=== PATIENT | female | born 1985 | race Hispanic/Latino ===

== ENCOUNTER 2020-11-20 18:53 | Emergency (ER) | payer OTHER ==
[2020-11-20 20:00] LABS: #Eosinphils 0.1 10x3/uL (0.0-0.5); #Monocytes 1.3 10x3/uL (0.0-1.1); #Neutrophils 7.7 10x3/uL (1.5-8.4); %Basophils 0.2 % (0.0-2.0); %Eosinophils 0.5 % (0.0-6.0); %Lymphocytes 9.9 % (18.0-47.0); %Monocytes 12.5 % (0.0-10.0); %Neutrophils 76.5 % (40.0-75.0); Hemoglobin 11.7 g/dL (12.0-15.5); Mean Corpuscular HGB CONC 33.8 g/dL (32.0-36.0); Mean Corpuscular Hemoglobin 29.2 pg (27.0-33.0); Mean Corpuscular Volume 86.3 fl (81.6-98.3); Mean Platelet Volume 10.1 fl (7.4-10.4); Platelet Count 230 10x3/uL (150-450); RBC Distribution Width 12.1 % (11.5-14.5); Red Blood Cell (RBC) Count 4.01 10x6/uL (3.90-5.03); White Blood Cell (WBC) Count 10.1 10x3/uL (3.5-10.5)
[2020-11-20 20:05] LABS: Bilirubin Neg (Negative); Blood, Urine 50 (Negative); Clarity Clear (Clear); Glucose, Urine (Dipstick) >=1000 mg/dL (Negative); Ketone, Urine 5 mg/dL (Negative); Leukocyte 100 (Negative); Nitrite Negative (Negative); Protein, Urine (Dipstick) 15 mg/dl (Neg-Trace); Urobilinogen Normal mg/dL (Less than 2)
[2020-11-20 20:11] LABS: BHCG - Serum Negative (NEGATIVE); Pregs Control Background? CLEAR/WHITE (CLR/WHITE); Pregs Control Bar Appear? YES (CONTROL BAR)
[2020-11-20 20:15] LABS: Bacteria/HPF Rare-Few HPF (None Seen); RBC/HPF 0-3 HPF (0-3); Squamous Epithelial 0-3 HPF (0-3)
[2020-11-20 20:18] LABS: ALT (SGPT) 34 U/L (8-55); AST (SGOT) 30 U/L (5-34); Albumin 3.8 g/dL (3.5-5.0); Alkaline Phosphatase 202 U/L (40-110); Anion Gap 13 mmol/L (10-20); BUN (Urea Nitrogen) 5 mg/dL (7.0-18.7); Calc. Creatinine Clearance 0 mL/min (70-130); Calcium 8.9 mg/dL (7.8-10.44); Carbon Dioxide 29 mmol/L (22-29); Chloride 95 mmol/L (98-107); Globulin 3.5 g/dL (2.4-3.5); Glucose 314 mg/dL (70-105); Protein, Total 7.3 g/dL (6.0-8.3); Sodium 134 mmol/L (136-145)
[2020-11-20] MEDS ORDERED: Ondansetron PF 4 MG/2 ML Vial ONE (20:22)
[2020-11-20] MEDS ORDERED: Ketorolac Tromethamine 15 MG/ML VIAL ONE ×2 (20:22→21:45)
[2020-11-20 20:31] LABS: Lipase Less than 4 U/L (8-78); Potassium 2.9 mmol/L (3.5-5.1)
[2020-11-20] MEDS ORDERED: Potassium Chloride 20 MEQ TAB ONE (20:42)
== END 2020-11-20 21:10 | disposition home or self-care (01) ==
LOC: CSHERS 18:53
DX: N12 Tubulo-interstitial nephritis, not specified as acute or chronic (principal); E87.6 Hypokalemia; E10.9 Type 1 diabetes mellitus without complications; E78.5 Hyperlipidemia, unspecified; K86.1 Other chronic pancreatitis; J45.909 Unspecified asthma, uncomplicated; Z79.899 Other long term (current) drug therapy
CPT/HCPCS: 74176; 80053; 81003; 81015; 83690; 84703; 85025; 87077; 87086; 96374; 96375; 96376; J1885; J2405

== ENCOUNTER 2021-06-06 17:21 | Inpatient (IN) | payer OTHER ==
[2021-06-06 18:03] LABS: #Neutrophils 10.7 10x3/uL (1.5-8.4); %Basophils 0.2 % (0.0-2.0); %Eosinophils 0.1 % (0.0-6.0); %Lymphocytes 7.4 % (18.0-47.0); %Monocytes 7.9 % (0.0-10.0); %Neutrophils 83.9 % (40.0-75.0); Hemoglobin 10.9 g/dL (12.0-15.5); Mean Corpuscular HGB CONC 33.3 g/dL (32.0-36.0); Mean Platelet Volume 10.3 fl (7.4-10.4); Platelet Count 282 10x3/uL (150-450); Red Blood Cell (RBC) Count 3.76 10x6/uL (3.90-5.03); White Blood Cell (WBC) Count 12.7 10x3/uL (3.5-10.5)
[2021-06-06] MEDS ORDERED: Ondansetron PF 4 MG/2 ML Vial ONE (18:09)
[2021-06-06] MEDS ORDERED: HYDROmorphone 0.5 MG/0.5 ML SYRINGE ONE (18:09)
[2021-06-06 18:22] LABS: ALT (SGPT) 40 U/L (8-55); AST (SGOT) 55 U/L (5-34); Albumin 3.2 g/dL (3.5-5.0); Alkaline Phosphatase 198 U/L (40-110); Anion Gap 13 mmol/L (10-20); BUN (Urea Nitrogen) 6 mg/dL (7.0-18.7); Calc. Creatinine Clearance 0 mL/min (70-130); Calcium 7.6 mg/dL (7.8-10.44); Carbon Dioxide 25 mmol/L (22-29); Chloride 100 mmol/L (98-107); Globulin 2.5 g/dL (2.4-3.5); Glucose 296 mg/dL (70-105); Protein, Total 5.7 g/dL (6.0-8.3); Sodium 135 mmol/L (136-145)
[2021-06-06 18:33] LABS: Lipase Less than 4 U/L (8-78); Potassium 2.6 mmol/L (3.5-5.1)
[2021-06-06] MEDS ORDERED: cefTRIAXone\\ROCEPHIN 1 GM VIAL ONE (18:46)
[2021-06-06] MEDS ORDERED: Potassium Chloride 20 MEQ TAB ONE (18:52)
[2021-06-06 19:10] LABS: SARS-CoV-2 NAA Rapid Test Not Detected (NotDetected)
[2021-06-06] MEDS ORDERED: Magnesium 2 GM/50 ML BAG (IN WATER) ONE (19:16)
[2021-06-06] MEDS ORDERED: Potassium Chloride 20 MEQ/100 ML PREMIX BAG ONE (19:16)
[2021-06-06 19:22] LABS: Magnesium 1.5 mg/dL (1.6-2.6)
[2021-06-06] MEDS ORDERED: HumaLOG 300 UNITS/3 ML VIAL SC SCH (19:30)
[2021-06-06] MEDS ORDERED: Potassium Chloride 20 MEQ in Premix Bag 1 BAG IVPB SCH (21:00)
[2021-06-06] MEDS ORDERED: Dextrose 5% in Water 1,000 ML IV PRN (21:05)
[2021-06-06] MEDS ORDERED: levETIRAcetam 500 MG TAB PO SCH (21:15)
[2021-06-06 22:10] VITALS: BMI 18.1
[2021-06-06 22:35] LABS: Bilirubin Neg (Negative); Blood, Urine 25 (Negative); Clarity Cloudy (Clear); Glucose, Urine (Dipstick) >=1000 mg/dL (Negative); Ketone, Urine Negative (Negative); Leukocyte 500 (Negative); Nitrite Negative (Negative); Protein, Urine (Dipstick) 30 mg/dl (Neg-Trace); Specific Gravity, Urine 1.005 (1.002-1.036); Urobilinogen Normal mg/dL (Less than 2)
[2021-06-06 23:05] LABS: Bacteria/HPF Rare-Few HPF (None Seen); RBC/HPF 0-3 HPF (0-3); Squamous Epithelial 0-3 HPF (0-3); WBC/HPF Greater than 50 HPF (0-3)
[2021-06-06] MEDS: Cefepime 2 GM in Sodium Chloride 0.9% 100 ML IVPB SCH (23:22)
[2021-06-06] MEDS: Lantus 1000 UNITS/10 ML VIAL SC SCH ×2 (23:23→23:54)
[2021-06-06] MEDS: Sodium Chloride 0.9% 1,000 ML IV SCH (23:24)
[2021-06-07] MEDS ORDERED: Magnesium Sulfate/D5W 1 GM/100 ML BAG IVPB SCH (03:30)
[2021-06-07] MEDS ORDERED: Magnesium 2 GM/50 ML 2 GM in Premix Bag 1 BAG IVPB SCH (04:30)
[2021-06-07 04:47] LABS: #Eosinphils 0.1 10x3/uL (0.0-0.5); #Monocytes 0.8 10x3/uL (0.0-1.1); #Neutrophils 8.9 10x3/uL (1.5-8.4); %Basophils 0.3 % (0.0-2.0); %Eosinophils 0.8 % (0.0-6.0); %Lymphocytes 11.9 % (18.0-47.0); %Monocytes 7.2 % (0.0-10.0); %Neutrophils 79.4 % (40.0-75.0); Hemoglobin 10.9 g/dL (12.0-15.5); Mean Corpuscular HGB CONC 33.2 g/dL (32.0-36.0); Mean Corpuscular Hemoglobin 29.9 pg (27.0-33.0); Mean Corpuscular Volume 89.9 fl (81.6-98.3); Mean Platelet Volume 10.7 fl (7.4-10.4); Platelet Count 261 10x3/uL (150-450); RBC Distribution Width 13.2 % (11.5-14.5); Red Blood Cell (RBC) Count 3.65 10x6/uL (3.90-5.03); White Blood Cell (WBC) Count 11.2 10x3/uL (3.5-10.5)
[2021-06-07] MEDS: Sodium Chloride 0.9% 1,000 ML IV SCH ×3 (05:16→16:25)
[2021-06-07] MEDS: HumaLOG 300 UNITS/3 ML VIAL SC PRN ×3 (05:17→17:05)
[2021-06-07 05:31] LABS: Anion Gap 13 mmol/L (10-20); BUN (Urea Nitrogen) 5 mg/dL (7.0-18.7); Calc. Creatinine Clearance 89 mL/min (70-130); Calcium 7.8 mg/dL (7.8-10.44); Carbon Dioxide 23 mmol/L (22-29); Chloride 107 mmol/L (98-107); Glucose 247 mg/dL (70-105); Magnesium 1.8 mg/dL (1.6-2.6); Potassium 3.6 mmol/L (3.5-5.1); Sodium 139 mmol/L (136-145)
[2021-06-07] MEDS: Cefepime 2 GM in Sodium Chloride 0.9% 100 ML IVPB SCH ×3 (05:56→22:15)
[2021-06-07] MEDS: Vancomycin HCl 750 MG in Sodium Chloride 0.9% 250 ML 250 ML IVPB SCH ×2 (07:16→19:36)
[2021-06-07] MEDS: Acyclovir 400 mg Tablet PO SCH ×2 (07:19→20:12)
[2021-06-07] MEDS: FLUoxetine HCl 20 MG CAP PO SCH (07:20)
[2021-06-07] MEDS: levETIRAcetam 500 MG TAB PO SCH ×2 (07:20→20:11)
[2021-06-07] MEDS: Pregabalin 50 MG CAP PO SCH ×2 (07:21→20:11)
[2021-06-07] MEDS: Enoxaparin Sodium 40 MG/0.4 ML SYRINGE SC SCH (07:21)
[2021-06-07] MEDS: Lantus 1000 UNITS/10 ML VIAL SC SCH (07:44)
[2021-06-07] MEDS ORDERED: Pharmacy to Dose VANC & ABX IVPB PRN (08:04)
[2021-06-07] MEDS ORDERED: FLUoxetine HCl 20 MG CAP PO SCH (09:00)
[2021-06-07] MEDS: Acetaminophen 325 MG TAB PO PRN (20:10)
[2021-06-07] MEDS ORDERED: Lantus 1000 UNITS/10 ML VIAL SC SCH (21:00)
[2021-06-08] MEDS: Sodium Chloride 0.9% 1,000 ML IV SCH ×4 (04:42→13:04)
[2021-06-08 04:50] LABS: #Eosinphils 0.2 10x3/uL (0.0-0.5); #Monocytes 0.6 10x3/uL (0.0-1.1); #Neutrophils 3.5 10x3/uL (1.5-8.4); %Basophils 0.5 % (0.0-2.0); %Eosinophils 2.8 % (0.0-6.0); %Lymphocytes 44.6 % (18.0-47.0); %Monocytes 7.4 % (0.0-10.0); %Neutrophils 44.4 % (40.0-75.0); Hemoglobin 10.6 g/dL (12.0-15.5); Mean Corpuscular HGB CONC 31.8 g/dL (32.0-36.0); Mean Corpuscular Hemoglobin 28.7 pg (27.0-33.0); Mean Corpuscular Volume 90.2 fl (81.6-98.3); Mean Platelet Volume 10.6 fl (7.4-10.4); Platelet Count 350 10x3/uL (150-450); RBC Distribution Width 13.3 % (11.5-14.5); Red Blood Cell (RBC) Count 3.69 10x6/uL (3.90-5.03); White Blood Cell (WBC) Count 7.8 10x3/uL (3.5-10.5)
[2021-06-08 05:10] LABS: Anion Gap 10 mmol/L (10-20); BUN (Urea Nitrogen) 5 mg/dL (7.0-18.7); Calc. Creatinine Clearance 99 mL/min (70-130); Calcium 8.3 mg/dL (7.8-10.44); Carbon Dioxide 25 mmol/L (22-29); Chloride 110 mmol/L (98-107); Glucose 66 mg/dL (70-105); Sodium 142 mmol/L (136-145)
[2021-06-08] MEDS: Cefepime 2 GM in Sodium Chloride 0.9% 100 ML IVPB SCH ×3 (05:46→22:14)
[2021-06-08] MEDS: Vancomycin HCl 750 MG in Sodium Chloride 0.9% 250 ML 250 ML IVPB SCH ×2 (07:18→22:13)
[2021-06-08] MEDS: FLUoxetine HCl 20 MG CAP PO SCH (07:19)
[2021-06-08] MEDS: levETIRAcetam 500 MG TAB PO SCH ×2 (07:20→22:11)
[2021-06-08] MEDS: Acyclovir 400 mg Tablet PO SCH ×2 (07:20→22:22)
[2021-06-08] MEDS: Pregabalin 50 MG CAP PO SCH ×2 (07:20→22:11)
[2021-06-08] MEDS: Enoxaparin Sodium 40 MG/0.4 ML SYRINGE SC SCH (07:20)
[2021-06-08] MEDS: Lantus 1000 UNITS/10 ML VIAL SC SCH ×2 (08:32→22:16)
[2021-06-08] MEDS: Acetaminophen 325 MG TAB PO PRN (08:38)
[2021-06-08] MEDS ORDERED: Potassium Chloride 20 MEQ TAB PO SCH (09:00)
[2021-06-08] MEDS ORDERED: Lorazepam 2 MG/ML VIAL SLOW IVP SCH ×2 (15:00)
[2021-06-08] MEDS: Dextrose 50% Abboject 50 ML SYRINGE SLOW IVP PRN ×2 (15:00→18:41)
[2021-06-08] MEDS: levETIRAcetam in NS 1,000 MG in Premix Bag 1 BAG IVPB SCH ×2 (15:30→16:01)
[2021-06-08 16:03] LABS: Lactic Acid 2.2 mmol/L (0.5-2.2)
[2021-06-08 19:28] LABS: Vancomycin, Trough 6.8 ug/mL
[2021-06-08] MEDS ORDERED: Dextrose 10% in Water 1,000 ML IV SCH (23:45)
[2021-06-09] MEDS: Dextrose 10% in Water 1,000 ML IV SCH ×2 (01:30→12:26)
[2021-06-09 04:37] LABS: Anion Gap 9 mmol/L (10-20); BUN (Urea Nitrogen) Less than 4 mg/dL (7.0-18.7); Calc. Creatinine Clearance 106 mL/min (70-130); Calcium 8.3 mg/dL (7.8-10.44); Carbon Dioxide 26 mmol/L (22-29); Chloride 107 mmol/L (98-107); Glucose 131 mg/dL (70-105); Potassium 3.4 mmol/L (3.5-5.1); Sodium 139 mmol/L (136-145)
[2021-06-09 05:02] LABS: Lipase Less than 4 U/L (8-78)
[2021-06-09 05:18] LABS: #Eosinphils 0.2 10x3/uL (0.0-0.5); #Monocytes 0.4 10x3/uL (0.0-1.1); %Basophils 0.8 % (0.0-2.0); %Eosinophils 3.8 % (0.0-6.0); %Lymphocytes 45.4 % (18.0-47.0); %Monocytes 8.8 % (0.0-10.0); Hemoglobin 10.3 g/dL (12.0-15.5); Mean Corpuscular HGB CONC 31.8 g/dL (32.0-36.0); Mean Corpuscular Hemoglobin 28.9 pg (27.0-33.0); Mean Corpuscular Volume 90.8 fl (81.6-98.3); Mean Platelet Volume 10.9 fl (7.4-10.4); Platelet Count 292 10x3/uL (150-450); RBC Distribution Width 13.5 % (11.5-14.5); Red Blood Cell (RBC) Count 3.57 10x6/uL (3.90-5.03)
[2021-06-09 05:50] LABS: ALT (SGPT) 63 U/L (8-55); AST (SGOT) 59 U/L (5-34); Albumin 2.8 g/dL (3.5-5.0); Alkaline Phosphatase 180 U/L (40-110); Bilirubin, Direct 0.1 mg/dL (0.1-0.3); Bilirubin, Total 0.2 mg/dL (0.2-1.2); Protein, Total 5.9 g/dL (6.0-8.3)
[2021-06-09] MEDS: Cefepime 2 GM in Sodium Chloride 0.9% 100 ML IVPB SCH ×3 (06:46→21:32)
[2021-06-09] MEDS: Vancomycin HCl 750 MG in Sodium Chloride 0.9% 250 ML 250 ML IVPB SCH ×3 (06:47→15:56)
[2021-06-09] MEDS ORDERED: Potassium Chloride 20 MEQ TAB PO SCH (07:45)
[2021-06-09] MEDS: Pregabalin 50 MG CAP PO SCH (09:48)
[2021-06-09] MEDS: Enoxaparin Sodium 40 MG/0.4 ML SYRINGE SC SCH (09:48)
[2021-06-09] MEDS: FLUoxetine HCl 20 MG CAP PO SCH (09:48)
[2021-06-09] MEDS: levETIRAcetam 500 MG TAB PO SCH ×2 (09:48→21:44)
[2021-06-09] MEDS: Acyclovir 400 mg Tablet PO SCH ×2 (09:49→21:00)
[2021-06-09] MEDS: Lantus 1000 UNITS/10 ML VIAL SC SCH ×2 (09:49→20:19)
[2021-06-09] MEDS: Sodium Chloride 0.9% 1,000 ML IV SCH (09:51)
[2021-06-09] MEDS ORDERED: Sodium Chloride 0.9% 100 ML ONE (20:49)
[2021-06-09] MEDS ORDERED: Vancomycin HCl 750 MG VIAL ONE (20:49)
[2021-06-09] MEDS: Dextrose 50% Abboject 50 ML SYRINGE SLOW IVP PRN (22:22)
[2021-06-09] MEDS ORDERED: Lorazepam 2 MG/ML VIAL SLOW IVP SCH (22:30)
[2021-06-09] MEDS ORDERED: Lorazepam 2 MG/ML VIAL ONE (22:31)
[2021-06-10 00:11] LABS: Anion Gap 15 mmol/L (10-20); BUN (Urea Nitrogen) Less than 4 mg/dL (7.0-18.7); Calc. Creatinine Clearance 86 mL/min (70-130); Carbon Dioxide 29 mmol/L (22-29); Chloride 100 mmol/L (98-107); Glucose 186 mg/dL (70-105); Magnesium 1.9 mg/dL (1.6-2.6); Potassium 4.1 mmol/L (3.5-5.1); Sodium 140 mmol/L (136-145)
[2021-06-10] MEDS: Vancomycin HCl 500 MG in Sodium Chloride 0.9% 100 ML IVPB SCH ×2 (00:43→08:54)
[2021-06-10] MEDS: Pregabalin 50 MG CAP PO SCH ×3 (03:59→20:56)
[2021-06-10] MEDS: Dextrose 10% in Water 1,000 ML IV SCH ×3 (04:07→17:46)
[2021-06-10 04:26] LABS: #Basophils 0.1 10x3/uL (0.0-0.2); #Eosinphils 0.2 10x3/uL (0.0-0.5); #Monocytes 0.6 10x3/uL (0.0-1.1); #Neutrophils 2.6 10x3/uL (1.5-8.4); %Basophils 0.9 % (0.0-2.0); %Eosinophils 3.8 % (0.0-6.0); %Lymphocytes 34.7 % (18.0-47.0); %Monocytes 10.7 % (0.0-10.0); %Neutrophils 48.6 % (40.0-75.0); Hemoglobin 12.5 g/dL (12.0-15.5); Mean Corpuscular HGB CONC 33.7 g/dL (32.0-36.0); Mean Corpuscular Hemoglobin 28.9 pg (27.0-33.0); Mean Corpuscular Volume 85.9 fl (81.6-98.3); Mean Platelet Volume 10.2 fl (7.4-10.4); Platelet Count 413 10x3/uL (150-450); RBC Distribution Width 13.1 % (11.5-14.5); Red Blood Cell (RBC) Count 4.32 10x6/uL (3.90-5.03); White Blood Cell (WBC) Count 5.3 10x3/uL (3.5-10.5)
[2021-06-10 04:38] LABS: Anion Gap 12 mmol/L (10-20); BUN (Urea Nitrogen) Less than 4 mg/dL (7.0-18.7); Calc. Creatinine Clearance 95 mL/min (70-130); Calcium 9.2 mg/dL (7.8-10.44); Carbon Dioxide 27 mmol/L (22-29); Chloride 103 mmol/L (98-107); Glucose 129 mg/dL (70-105); Magnesium 1.9 mg/dL (1.6-2.6); Potassium 4.4 mmol/L (3.5-5.1); Sodium 138 mmol/L (136-145)
[2021-06-10] MEDS: Cefepime 2 GM in Sodium Chloride 0.9% 100 ML IVPB SCH ×3 (05:04→22:31)
[2021-06-10] MEDS ORDERED: Vancomycin HCl 750 MG in Sodium Chloride 0.9% 250 ML 250 ML IVPB SCH (06:00)
[2021-06-10] MEDS: Enoxaparin Sodium 40 MG/0.4 ML SYRINGE SC SCH (08:55)
[2021-06-10] MEDS ORDERED: Electrolyte Replacement Protocol 1 EACH FS SCH (09:00)
[2021-06-10] MEDS ORDERED: Magnesium 2 GM/50 ML 2 GM in Premix Bag 1 BAG IVPB SCH (09:00)
[2021-06-10] MEDS ORDERED: levETIRAcetam in NS 1,000 MG in Premix Bag 1 BAG IVPB SCH (09:00)
[2021-06-10] MEDS: Acyclovir 400 mg Tablet PO SCH ×2 (09:26→20:56)
[2021-06-10] MEDS: Lantus 1000 UNITS/10 ML VIAL SC SCH (09:26)
[2021-06-10] MEDS: FLUoxetine HCl 20 MG CAP PO SCH (09:26)
[2021-06-10] MEDS: Famotidine 20 MG TAB PO SCH ×2 (09:26→20:56)
[2021-06-10] MEDS: Dextrose 50% Abboject 50 ML SYRINGE SLOW IVP PRN (10:31)
[2021-06-10] MEDS ORDERED: levETIRAcetam 750 MG, Admixture Fee 1 EACH in Sodium Chloride 0.9% 100 ML IVPB SCH (10:45)
[2021-06-10] MEDS: levETIRAcetam 750 MG, Admixture Fee 1 EACH in Sodium Chloride 0.9% 100 ML IVPB SCH (20:55)
[2021-06-11] MEDS: Dextrose 10% in Water 1,000 ML IV SCH ×3 (03:30→23:00)
[2021-06-11 04:33] LABS: #Basophils 0.1 10x3/uL (0.0-0.2); #Eosinphils 0.2 10x3/uL (0.0-0.5); #Monocytes 0.9 10x3/uL (0.0-1.1); #Neutrophils 3.6 10x3/uL (1.5-8.4); %Basophils 1.1 % (0.0-2.0); %Eosinophils 3.5 % (0.0-6.0); %Lymphocytes 27.2 % (18.0-47.0); %Monocytes 13.5 % (0.0-10.0); %Neutrophils 54.2 % (40.0-75.0); Hemoglobin 11.5 g/dL (12.0-15.5); Mean Corpuscular HGB CONC 31.9 g/dL (32.0-36.0); Mean Corpuscular Hemoglobin 28.4 pg (27.0-33.0); Mean Corpuscular Volume 88.9 fl (81.6-98.3); Mean Platelet Volume 9.6 fl (7.4-10.4); Platelet Count 470 10x3/uL (150-450); RBC Distribution Width 12.8 % (11.5-14.5); Red Blood Cell (RBC) Count 4.05 10x6/uL (3.90-5.03); White Blood Cell (WBC) Count 6.7 10x3/uL (3.5-10.5)
[2021-06-11 04:44] LABS: Anion Gap 11 mmol/L (10-20); BUN (Urea Nitrogen) 5 mg/dL (7.0-18.7); Calc. Creatinine Clearance 74 mL/min (70-130); Calcium 8.8 mg/dL (7.8-10.44); Carbon Dioxide 27 mmol/L (22-29); Chloride 101 mmol/L (98-107); Glucose 250 mg/dL (70-105); Lipase 4 U/L (8-78); Magnesium 1.9 mg/dL (1.6-2.6); Potassium 4.1 mmol/L (3.5-5.1); Sodium 135 mmol/L (136-145)
[2021-06-11] MEDS: Cefepime 2 GM in Sodium Chloride 0.9% 100 ML IVPB SCH ×3 (05:40→21:30)
[2021-06-11] MEDS ORDERED: Magnesium 2 GM/50 ML 2 GM in Premix Bag 1 BAG IVPB SCH (05:45)
[2021-06-11] MEDS: Pregabalin 50 MG CAP PO SCH ×2 (08:33→21:09)
[2021-06-11] MEDS: Famotidine 20 MG TAB PO SCH ×2 (08:34→21:09)
[2021-06-11] MEDS: Acyclovir 400 mg Tablet PO SCH ×2 (08:34→21:11)
[2021-06-11] MEDS: FLUoxetine HCl 20 MG CAP PO SCH (08:34)
[2021-06-11] MEDS: Enoxaparin Sodium 40 MG/0.4 ML SYRINGE SC SCH (08:36)
[2021-06-11] MEDS: Lantus 1000 UNITS/10 ML VIAL SC SCH (08:38)
[2021-06-11] MEDS ORDERED: Sodium Chloride 0.9% 500 ML IV SCH (08:45)
[2021-06-11] MEDS: levETIRAcetam 750 MG, Admixture Fee 1 EACH in Sodium Chloride 0.9% 100 ML IVPB SCH ×2 (09:08→21:10)
[2021-06-11] MEDS: Sodium Chloride 0.9% 1,000 ML IV SCH ×2 (09:09→18:44)
[2021-06-11 14:45] LABS: BHCG - Serum Negative (NEGATIVE); Pregs Control Background? CLEAR/WHITE (CLR/WHITE); Pregs Control Bar Appear? YES (CONTROL BAR)
[2021-06-11] MEDS ORDERED: PROPOFOL 0 ML ONE (15:56)
[2021-06-11] MEDS ORDERED: Midazolam HCl 2 mg/2 ml Vial ONE (16:14)
[2021-06-11] MEDS ORDERED: Pancrelipase DR 12,000 1 CAP PO SCH (18:30)
[2021-06-11] MEDS ORDERED: Loperamide HCl 2 MG CAP PO SCH (21:30)
[2021-06-12 04:36] LABS: #Basophils 0.1 10x3/uL (0.0-0.2); #Eosinphils 0.3 10x3/uL (0.0-0.5); #Monocytes 0.6 10x3/uL (0.0-1.1); #Neutrophils 2.1 10x3/uL (1.5-8.4); %Eosinophils 5.1 % (0.0-6.0); %Lymphocytes 37.9 % (18.0-47.0); %Monocytes 11.8 % (0.0-10.0); %Neutrophils 43.4 % (40.0-75.0); Hemoglobin 11.4 g/dL (12.0-15.5); Mean Corpuscular HGB CONC 32.5 g/dL (32.0-36.0); Mean Corpuscular Hemoglobin 28.9 pg (27.0-33.0); Mean Corpuscular Volume 88.9 fl (81.6-98.3); Mean Platelet Volume 9.9 fl (7.4-10.4); Platelet Count 352 10x3/uL (150-450); RBC Distribution Width 12.9 % (11.5-14.5); Red Blood Cell (RBC) Count 3.95 10x6/uL (3.90-5.03); White Blood Cell (WBC) Count 4.9 10x3/uL (3.5-10.5)
[2021-06-12 04:47] LABS: Anion Gap 11 mmol/L (10-20); BUN (Urea Nitrogen) 5 mg/dL (7.0-18.7); Calc. Creatinine Clearance 84 mL/min (70-130); Calcium 8.7 mg/dL (7.8-10.44); Carbon Dioxide 26 mmol/L (22-29); Chloride 106 mmol/L (98-107); Glucose 154 mg/dL (70-105); Magnesium 1.8 mg/dL (1.6-2.6); Potassium 3.7 mmol/L (3.5-5.1); Sodium 139 mmol/L (136-145)
[2021-06-12] MEDS ORDERED: Magnesium 2 GM/50 ML 2 GM in Premix Bag 1 BAG IVPB SCH (05:15)
[2021-06-12] MEDS: Sodium Chloride 0.9% 1,000 ML IV SCH (05:34)
[2021-06-12] MEDS: Cefepime 2 GM in Sodium Chloride 0.9% 100 ML IVPB SCH ×3 (05:34→22:40)
[2021-06-12] MEDS: Famotidine 20 MG TAB PO SCH ×2 (08:24→21:06)
[2021-06-12] MEDS: Pregabalin 50 MG CAP PO SCH ×2 (08:24→21:06)
[2021-06-12] MEDS: Enoxaparin Sodium 40 MG/0.4 ML SYRINGE SC SCH (08:24)
[2021-06-12] MEDS: Acyclovir 400 mg Tablet PO SCH ×2 (08:24→21:06)
[2021-06-12] MEDS: Pancrelipase DR 12,000 1 CAP PO SCH ×3 (08:25→17:48)
[2021-06-12] MEDS: FLUoxetine HCl 20 MG CAP PO SCH (08:25)
[2021-06-12] MEDS: Lantus 1000 UNITS/10 ML VIAL SC SCH (08:26)
[2021-06-12] MEDS: levETIRAcetam 750 MG, Admixture Fee 1 EACH in Sodium Chloride 0.9% 100 ML IVPB SCH ×2 (08:48→21:05)
[2021-06-12] MEDS ORDERED: Electrolyte Replacement Protocol 1 EACH FS SCH (12:30)
[2021-06-12] MEDS: HumaLOG 300 UNITS/3 ML VIAL SC PRN ×3 (13:07→22:06)
[2021-06-12] MEDS: Dextrose 50% Abboject 50 ML SYRINGE SLOW IVP PRN (16:02)
[2021-06-12] MEDS ORDERED: Lorazepam 2 MG/ML VIAL SLOW IVP SCH (17:00)
[2021-06-12] MEDS ORDERED: levETIRAcetam in NS 1,000 MG in Premix Bag 1 BAG IVPB SCH (17:00)
[2021-06-12] MEDS ORDERED: ADMIXTURE FEE IVPB SCH (18:00)
[2021-06-12] MEDS ORDERED: SODIUM CHLORIDE IVPB SCH (18:00)
[2021-06-12] MEDS ORDERED: FOSPHENYTOIN SODIUM IVPB SCH (18:00)
[2021-06-12] MEDS: Dextrose 5% in Water 1,000 ML IV SCH (18:40)
[2021-06-13] MEDS: Dextrose 5% in Water 1,000 ML IV SCH ×3 (02:31→12:32)
[2021-06-13 03:51] LABS: ALT (SGPT) 55 U/L (8-55); AST (SGOT) 40 U/L (5-34); Albumin 3.3 g/dL (3.5-5.0); Alkaline Phosphatase 205 U/L (40-110); Anion Gap 12 mmol/L (10-20); BUN (Urea Nitrogen) 6 mg/dL (7.0-18.7); Bilirubin, Total 0.5 mg/dL (0.2-1.2); Calc. Creatinine Clearance 88 mL/min (70-130); Carbon Dioxide 27 mmol/L (22-29); Chloride 104 mmol/L (98-107); Globulin 3.5 g/dL (2.4-3.5); Glucose 119 mg/dL (70-105); Phosphorus 3.1 mg/dL (2.3-4.7); Protein, Total 6.8 g/dL (6.0-8.3); Sodium 139 mmol/L (136-145)
[2021-06-13 04:04] LABS: Magnesium 1.8 mg/dL (1.6-2.6)
[2021-06-13] MEDS ORDERED: Magnesium 2 GM/50 ML 2 GM in Premix Bag 1 BAG IVPB SCH (05:00)
[2021-06-13] MEDS ORDERED: Magnesium 2 GM/50 ML BAG (IN WATER) ONE (05:44)
[2021-06-13] MEDS: Cefepime 2 GM in Sodium Chloride 0.9% 100 ML IVPB SCH ×3 (05:51→22:22)
[2021-06-13] MEDS: Enoxaparin Sodium 40 MG/0.4 ML SYRINGE SC SCH (09:07)
[2021-06-13] MEDS: HumaLOG 300 UNITS/3 ML VIAL SC PRN ×4 (09:09→16:21)
[2021-06-13] MEDS: SODIUM CHLORIDE IVPB SCH (09:21)
[2021-06-13] MEDS: levETIRAcetam 750 MG, Admixture Fee 1 EACH in Sodium Chloride 0.9% 100 ML IVPB SCH ×2 (09:21→20:58)
[2021-06-13] MEDS: ADMIXTURE FEE IVPB SCH (09:21)
[2021-06-13] MEDS: FOSPHENYTOIN SODIUM IVPB SCH (09:21)
[2021-06-13] MEDS ORDERED: Senokot S 8.6-50 MG TAB PO PRN (09:34)
[2021-06-13] MEDS ORDERED: Cepastat Lozenges 1 LOZ PO PRN (09:34)
[2021-06-13] MEDS ORDERED: Bisacodyl 10 MG SUPP PR PRN (09:34)
[2021-06-13] MEDS ORDERED: hydrALAZINE 20 MG/ML VIAL SLOW IVP PRN (09:34)
[2021-06-13] MEDS ORDERED: Hydrocerin (Eucerin) Cream 120 gm Jar TOP PRN (09:34)
[2021-06-13] MEDS ORDERED: Calcium Carbonate 500 MG ChewTAB PO PRN (09:34)
[2021-06-13] MEDS ORDERED: Artificial Tear Sol 15 ML BOT EA EYE PRN (09:34)
[2021-06-13] MEDS ORDERED: Ondansetron ODT 4 MG TAB PO PRN (09:34)
[2021-06-13] MEDS ORDERED: GUAIFENESIN SF SOLN 200 MG/10 ML UDCUP PO PRN (09:34)
[2021-06-13] MEDS ORDERED: Sodium Chloride 0.65% Nasal 44 ML BOT EA NARE PRN (09:34)
[2021-06-13] MEDS ORDERED: Ondansetron PF 4 MG/2 ML Vial IVP PRN (09:34)
[2021-06-13] MEDS: Acyclovir 400 mg Tablet PO SCH ×2 (10:03→20:58)
[2021-06-13] MEDS: Famotidine 20 MG TAB PO SCH ×2 (10:03→20:58)
[2021-06-13] MEDS: Pregabalin 50 MG CAP PO SCH ×2 (10:09→20:59)
[2021-06-13] MEDS: FLUoxetine HCl 20 MG CAP PO SCH (10:38)
[2021-06-13] MEDS: Pancrelipase DR 12,000 1 CAP PO SCH ×3 (10:38→19:07)
[2021-06-13] MEDS: Lantus 1000 UNITS/10 ML VIAL SC SCH (10:46)
[2021-06-13] MEDS: Loperamide HCl 2 MG CAP PO PRN (17:14)
[2021-06-13] MEDS ORDERED: HYDROcodone/Acetaminophen 5/325 mg Tablet PO SCH (20:30)
[2021-06-13] MEDS: Multivitamins, Adult 10 ML, Folic Acid 1 MG in Dextrose 5 %-0.45 % NaCl 1,000 ML IV SCH (22:22)
[2021-06-13] MEDS: Thiamine HCl 200 MG/2 ML VIAL SLOW IVP SCH (22:26)
[2021-06-14 03:00] LABS: Pregnancy Test - Urine (BHCG) Negative (Negative)
[2021-06-14 03:05] LABS: Pregu Control Background? CLEAR/WHITE (CLR/WHITE); Pregu Control Bar Appear? YES (CONTROL BAR); Specific Gravity 1.005 (1.002-1.036)
[2021-06-14] MEDS: HumaLOG 300 UNITS/3 ML VIAL SC PRN (03:06)
[2021-06-14 04:52] LABS: #Basophils 0.1 10x3/uL (0.0-0.2); #Eosinphils 0.3 10x3/uL (0.0-0.5); #Monocytes 0.5 10x3/uL (0.0-1.1); #Neutrophils 2.5 10x3/uL (1.5-8.4); %Basophils 1.1 % (0.0-2.0); %Eosinophils 4.7 % (0.0-6.0); %Lymphocytes 38.2 % (18.0-47.0); %Monocytes 9.3 % (0.0-10.0); %Neutrophils 45.8 % (40.0-75.0); Hemoglobin 11.9 g/dL (12.0-15.5); Mean Corpuscular Volume 90.7 fl (81.6-98.3); Mean Platelet Volume 9.2 fl (7.4-10.4); Platelet Count 445 10x3/uL (150-450); RBC Distribution Width 12.9 % (11.5-14.5); White Blood Cell (WBC) Count 5.4 10x3/uL (3.5-10.5)
[2021-06-14 04:55] LABS: ALT (SGPT) 51 U/L (8-55); AST (SGOT) 35 U/L (5-34); Albumin 3.4 g/dL (3.5-5.0); Alkaline Phosphatase 225 U/L (40-110); Anion Gap 11 mmol/L (10-20); BUN (Urea Nitrogen) 6 mg/dL (7.0-18.7); Bilirubin, Total 0.5 mg/dL (0.2-1.2); Calc. Creatinine Clearance 73 mL/min (70-130); Calcium 9.2 mg/dL (7.8-10.44); Carbon Dioxide 24 mmol/L (22-29); Chloride 101 mmol/L (98-107); Globulin 3.9 g/dL (2.4-3.5); Glucose 229 mg/dL (70-105); Magnesium 1.9 mg/dL (1.6-2.6); Phosphorus 2.7 mg/dL (2.3-4.7); Protein, Total 7.3 g/dL (6.0-8.3); Sodium 132 mmol/L (136-145)
[2021-06-14] MEDS ORDERED: Magnesium 2 GM/50 ML 2 GM in Premix Bag 1 BAG IVPB SCH (05:30)
[2021-06-14] MEDS: Dextrose 5% in Water 1,000 ML IV SCH (05:35)
[2021-06-14] MEDS ORDERED: HYDROcodone/Acetaminophen 5/325 mg Tablet PO PRN (05:41)
[2021-06-14] MEDS: Cefepime 2 GM in Sodium Chloride 0.9% 100 ML IVPB SCH ×3 (06:33→23:00)
[2021-06-14] MEDS: SODIUM CHLORIDE IVPB SCH (09:07)
[2021-06-14] MEDS: FOSPHENYTOIN SODIUM IVPB SCH (09:07)
[2021-06-14] MEDS: ADMIXTURE FEE IVPB SCH (09:07)
[2021-06-14] MEDS: FLUoxetine HCl 20 MG CAP PO SCH (09:08)
[2021-06-14] MEDS: Pancrelipase DR 12,000 1 CAP PO SCH ×3 (09:08→16:51)
[2021-06-14] MEDS: Acyclovir 400 mg Tablet PO SCH ×2 (09:08→20:47)
[2021-06-14] MEDS: Enoxaparin Sodium 40 MG/0.4 ML SYRINGE SC SCH (09:08)
[2021-06-14] MEDS: Famotidine 20 MG TAB PO SCH ×2 (09:09→20:48)
[2021-06-14] MEDS: Pregabalin 50 MG CAP PO SCH ×2 (09:09→20:47)
[2021-06-14] MEDS: Lantus 1000 UNITS/10 ML VIAL SC SCH (09:12)
[2021-06-14] MEDS: levETIRAcetam 750 MG, Admixture Fee 1 EACH in Sodium Chloride 0.9% 100 ML IVPB SCH ×2 (10:01→20:47)
[2021-06-14] MEDS: Fentanyl 100 MCG/2 ML VIAL SLOW IVP PRN (13:35)
[2021-06-14] MEDS: Loperamide HCl 2 MG CAP PO PRN (17:35)
[2021-06-15 04:36] LABS: ALT (SGPT) 44 U/L (8-55); AST (SGOT) 30 U/L (5-34); Albumin 3.1 g/dL (3.5-5.0); Alkaline Phosphatase 199 U/L (40-110); Anion Gap 10 mmol/L (10-20); BUN (Urea Nitrogen) 8 mg/dL (7.0-18.7); Bilirubin, Total 0.3 mg/dL (0.2-1.2); Calc. Creatinine Clearance 85 mL/min (70-130); Calcium 8.7 mg/dL (7.8-10.44); Carbon Dioxide 29 mmol/L (22-29); Chloride 103 mmol/L (98-107); Globulin 3.3 g/dL (2.4-3.5); Glucose 146 mg/dL (70-105); Potassium 3.8 mmol/L (3.5-5.1); Protein, Total 6.4 g/dL (6.0-8.3); Sodium 138 mmol/L (136-145)
[2021-06-15 05:58] LABS: #Basophils 0.1 10x3/uL (0.0-0.2); #Eosinphils 0.2 10x3/uL (0.0-0.5); #Monocytes 0.5 10x3/uL (0.0-1.1); #Neutrophils 2.4 10x3/uL (1.5-8.4); %Basophils 1.4 % (0.0-2.0); %Eosinophils 3.6 % (0.0-6.0); %Lymphocytes 37.4 % (18.0-47.0); %Monocytes 9.5 % (0.0-10.0); %Neutrophils 47.7 % (40.0-75.0); Hemoglobin 10.9 g/dL (12.0-15.5); Mean Corpuscular Hemoglobin 29.3 pg (27.0-33.0); Mean Corpuscular Volume 88.7 fl (81.6-98.3); Mean Platelet Volume 9.1 fl (7.4-10.4); Platelet Count 400 10x3/uL (150-450); RBC Distribution Width 12.9 % (11.5-14.5); Red Blood Cell (RBC) Count 3.72 10x6/uL (3.90-5.03)
[2021-06-15] MEDS: Fentanyl 100 MCG/2 ML VIAL SLOW IVP PRN ×3 (08:10→16:44)
[2021-06-15] MEDS: Dextrose 5% in Water 1,000 ML IV SCH ×2 (08:15→13:14)
[2021-06-15] MEDS: Cefepime 2 GM in Sodium Chloride 0.9% 100 ML IVPB SCH ×3 (08:16→23:00)
[2021-06-15] MEDS: Pancrelipase DR 12,000 1 CAP PO SCH ×3 (08:18→16:15)
[2021-06-15] MEDS: Acyclovir 400 mg Tablet PO SCH ×2 (08:19→20:52)
[2021-06-15] MEDS: FLUoxetine HCl 20 MG CAP PO SCH (08:20)
[2021-06-15] MEDS: Enoxaparin Sodium 40 MG/0.4 ML SYRINGE SC SCH (08:20)
[2021-06-15] MEDS: Famotidine 20 MG TAB PO SCH ×2 (08:20→20:53)
[2021-06-15] MEDS: Loperamide HCl 2 MG CAP PO PRN ×2 (08:23→20:53)
[2021-06-15] MEDS: Pregabalin 50 MG CAP PO SCH ×2 (09:00→20:52)
[2021-06-15 12:03] LABS: SARS-CoV-2 PCR by NAA Not Detected (NotDetected)
[2021-06-15] MEDS: FOSPHENYTOIN SODIUM IVPB SCH (12:55)
[2021-06-15] MEDS: Lantus 1000 UNITS/10 ML VIAL SC SCH ×2 (12:55→16:17)
[2021-06-15] MEDS: SODIUM CHLORIDE IVPB SCH (12:55)
[2021-06-15] MEDS: ADMIXTURE FEE IVPB SCH (12:55)
[2021-06-15] MEDS: levETIRAcetam 750 MG, Admixture Fee 1 EACH in Sodium Chloride 0.9% 100 ML IVPB SCH ×2 (12:59→21:16)
[2021-06-15] MEDS: HumaLOG 300 UNITS/3 ML VIAL SC PRN (16:17)
[2021-06-15] MEDS: Thiamine HCl 200 MG/2 ML VIAL SLOW IVP SCH ×2 (23:48)
[2021-06-15] MEDS: Multivitamins, Adult 10 ML, Folic Acid 1 MG in Dextrose 5 %-0.45 % NaCl 1,000 ML IV SCH ×2 (23:49)
[2021-06-16] MEDS: Ondansetron PF 4 MG/2 ML Vial IVP PRN ×2 (00:02→08:58)
[2021-06-16] MEDS: Cefepime 2 GM in Sodium Chloride 0.9% 100 ML IVPB SCH (07:00)
[2021-06-16] MEDS: Pregabalin 50 MG CAP PO SCH ×2 (08:56→21:31)
[2021-06-16] MEDS: Acyclovir 400 mg Tablet PO SCH ×2 (08:56→21:31)
[2021-06-16] MEDS: Dextrose 5% in Water 1,000 ML IV SCH (08:58)
[2021-06-16] MEDS: Enoxaparin Sodium 40 MG/0.4 ML SYRINGE SC SCH (08:58)
[2021-06-16] MEDS: FLUoxetine HCl 20 MG CAP PO SCH (08:59)
[2021-06-16] MEDS: Pancrelipase DR 12,000 1 CAP PO SCH ×3 (09:00→17:48)
[2021-06-16] MEDS: Famotidine 20 MG TAB PO SCH ×2 (09:00→21:32)
[2021-06-16] MEDS: SODIUM CHLORIDE IVPB SCH ×3 (09:02→10:45)
[2021-06-16] MEDS: FOSPHENYTOIN SODIUM IVPB SCH ×3 (09:02→10:45)
[2021-06-16] MEDS: ADMIXTURE FEE IVPB SCH ×3 (09:02→10:45)
[2021-06-16] MEDS: Lantus 1000 UNITS/10 ML VIAL SC SCH (09:12)
[2021-06-16] MEDS: HumaLOG 300 UNITS/3 ML VIAL SC PRN ×3 (09:12→21:37)
[2021-06-16] MEDS: levETIRAcetam 750 MG, Admixture Fee 1 EACH in Sodium Chloride 0.9% 100 ML IVPB SCH (10:45)
[2021-06-16] MEDS ORDERED: traZODone HCl 50 MG TAB PO SCH (21:00)
[2021-06-16] MEDS: LACTINEX 1 TAB PO SCH (21:31)
[2021-06-16] MEDS: levETIRAcetam 500 MG TAB PO SCH (21:32)
[2021-06-17 03:05] LABS: #Basophils 0.1 10x3/uL (0.0-0.2); #Eosinphils 0.2 10x3/uL (0.0-0.5); #Monocytes 0.4 10x3/uL (0.0-1.1); #Neutrophils 2.9 10x3/uL (1.5-8.4); %Basophils 0.8 % (0.0-2.0); %Eosinophils 3.9 % (0.0-6.0); %Lymphocytes 40.9 % (18.0-47.0); %Neutrophils 47.2 % (40.0-75.0); Hemoglobin 10.7 g/dL (12.0-15.5); Mean Corpuscular HGB CONC 32.1 g/dL (32.0-36.0); Mean Corpuscular Hemoglobin 28.8 pg (27.0-33.0); Mean Corpuscular Volume 89.5 fl (81.6-98.3); Mean Platelet Volume 9.2 fl (7.4-10.4); Platelet Count 326 10x3/uL (150-450); RBC Distribution Width 12.8 % (11.5-14.5); Red Blood Cell (RBC) Count 3.72 10x6/uL (3.90-5.03); White Blood Cell (WBC) Count 6.2 10x3/uL (3.5-10.5)
[2021-06-17 03:44] LABS: ALT (SGPT) 34 U/L (8-55); AST (SGOT) 24 U/L (5-34); Albumin 3.3 g/dL (3.5-5.0); Alkaline Phosphatase 193 U/L (40-110); Anion Gap 11 mmol/L (10-20); BUN (Urea Nitrogen) 11 mg/dL (7.0-18.7); Bilirubin, Total 0.3 mg/dL (0.2-1.2); Calc. Creatinine Clearance 94 mL/min (70-130); Carbon Dioxide 30 mmol/L (22-29); Chloride 101 mmol/L (98-107); Globulin 3.3 g/dL (2.4-3.5); Glucose 123 mg/dL (70-105); Lipase 5 U/L (8-78); Magnesium 1.8 mg/dL (1.6-2.6); Potassium 3.5 mmol/L (3.5-5.1); Protein, Total 6.6 g/dL (6.0-8.3); Sodium 138 mmol/L (136-145)
[2021-06-17] MEDS ORDERED: Magnesium 2 GM/50 ML 2 GM in Premix Bag 1 BAG IVPB SCH (04:15)
[2021-06-17] MEDS ORDERED: Potassium Chloride 20 MEQ TAB PO SCH (06:00)
[2021-06-17] MEDS: Dextrose 5% in Water 1,000 ML IV SCH (06:02)
[2021-06-17] MEDS: Pancrelipase DR 12,000 1 CAP PO SCH ×3 (08:49→17:15)
[2021-06-17] MEDS: LACTINEX 1 TAB PO SCH ×2 (08:50→21:59)
[2021-06-17] MEDS: Acyclovir 400 mg Tablet PO SCH ×2 (08:50→21:59)
[2021-06-17] MEDS: Enoxaparin Sodium 40 MG/0.4 ML SYRINGE SC SCH (08:52)
[2021-06-17] MEDS: Famotidine 20 MG TAB PO SCH ×2 (08:52→21:59)
[2021-06-17] MEDS: Pregabalin 50 MG CAP PO SCH ×2 (08:53→21:59)
[2021-06-17] MEDS: FLUoxetine HCl 20 MG CAP PO SCH (08:54)
[2021-06-17] MEDS: levETIRAcetam 500 MG TAB PO SCH ×2 (08:54→22:00)
[2021-06-17] MEDS: Lantus 1000 UNITS/10 ML VIAL SC SCH (08:55)
[2021-06-17] MEDS: HumaLOG 300 UNITS/3 ML VIAL SC PRN ×3 (11:05→22:04)
[2021-06-17 12:29] LABS: Potassium 4.6 mmol/L (3.5-5.1)
[2021-06-17] MEDS: Lidocaine 5% Patch TD SCH (15:54)
[2021-06-17] MEDS: Ketorolac Tromethamine 30 MG/ML VIAL IVP PRN (17:14)
[2021-06-18] MEDS: Transdermal Patch Removal TOP SCH (04:00)
[2021-06-18 05:45] LABS: Magnesium 1.9 mg/dL (1.6-2.6)
[2021-06-18] MEDS ORDERED: Magnesium 2 GM/50 ML 2 GM in Premix Bag 1 BAG IVPB SCH (06:15)
[2021-06-18] MEDS: Acetaminophen 325 MG TAB PO PRN ×2 (08:32→13:17)
[2021-06-18] MEDS: FLUoxetine HCl 20 MG CAP PO SCH (08:32)
[2021-06-18] MEDS: LACTINEX 1 TAB PO SCH ×2 (08:32→21:40)
[2021-06-18] MEDS: Famotidine 20 MG TAB PO SCH ×2 (08:33→21:40)
[2021-06-18] MEDS: Acyclovir 400 mg Tablet PO SCH ×2 (08:33→21:41)
[2021-06-18] MEDS: levETIRAcetam 500 MG TAB PO SCH ×2 (08:33→21:39)
[2021-06-18] MEDS: Pregabalin 50 MG CAP PO SCH ×2 (08:34→21:40)
[2021-06-18] MEDS: HumaLOG 300 UNITS/3 ML VIAL SC PRN ×2 (08:34→16:42)
[2021-06-18] MEDS: Lantus 1000 UNITS/10 ML VIAL SC SCH (08:34)
[2021-06-18] MEDS: Pancrelipase DR 12,000 1 CAP PO SCH ×3 (08:34→16:42)
[2021-06-18] MEDS: Enoxaparin Sodium 40 MG/0.4 ML SYRINGE SC SCH (08:35)
[2021-06-18] MEDS: Ketorolac Tromethamine 30 MG/ML VIAL IVP PRN ×2 (16:41→21:47)
[2021-06-18] MEDS: Lidocaine 5% Patch TD SCH (16:42)
[2021-06-19] MEDS: HumaLOG 300 UNITS/3 ML VIAL SC PRN ×2 (07:02→16:40)
[2021-06-19] MEDS: Transdermal Patch Removal TOP SCH (07:02)
[2021-06-19] MEDS: Lantus 1000 UNITS/10 ML VIAL SC SCH (09:25)
[2021-06-19] MEDS: Pregabalin 50 MG CAP PO SCH (09:26)
[2021-06-19] MEDS: Acetaminophen 325 MG TAB PO PRN ×2 (09:28→16:39)
[2021-06-19] MEDS: LACTINEX 1 TAB PO SCH (09:28)
[2021-06-19] MEDS: Acyclovir 400 mg Tablet PO SCH (09:28)
[2021-06-19] MEDS: levETIRAcetam 500 MG TAB PO SCH (09:28)
[2021-06-19] MEDS: FLUoxetine HCl 20 MG CAP PO SCH (09:29)
[2021-06-19] MEDS: Enoxaparin Sodium 40 MG/0.4 ML SYRINGE SC SCH (09:29)
[2021-06-19] MEDS: Pancrelipase DR 12,000 1 CAP PO SCH ×3 (09:29→17:24)
[2021-06-19] MEDS: Famotidine 20 MG TAB PO SCH (09:29)
[2021-06-19] MEDS: Ketorolac Tromethamine 30 MG/ML VIAL IVP PRN (12:02)
[2021-06-19] MEDS ORDERED: HYDROcodone/Acetaminophen 7.5/325 mg Tablet PO PRN (12:54)
[2021-06-19] MEDS ORDERED: Methocarbamol 500 MG TAB PO SCH (15:00)
[2021-06-19] MEDS ORDERED: Nystatin Powder 15 GM BOT TOP SCH (15:00)
[2021-06-19] MEDS ORDERED: Phenazopyridine HCl 97.5 MG TABLET PO SCH (15:00)
[2021-06-19 16:30] VITALS: BP 93/50; TEMP 99.5
[2021-06-19 16:36] LABS: Bilirubin Neg (Negative); Blood, Urine 25 (Negative); Clarity Cloudy (Clear); Glucose, Urine (Dipstick) >=1000 mg/dL (Negative); Ketone, Urine Negative (Negative); Leukocyte 500 (Negative); Nitrite Negative (Negative); Protein, Urine (Dipstick) Negative (Neg-Trace); Specific Gravity, Urine 1.015 (1.002-1.036); Urobilinogen Normal mg/dL (Less than 2)
[2021-06-19 16:37] LABS: Urine Culture Reflex No No
[2021-06-19] MEDS: Lidocaine 5% Patch TD SCH (16:39)
[2021-06-19 17:23] LABS: Bacteria/HPF 1+ HPF (None Seen)
[2021-06-19] MEDS ORDERED: Lantus 1000 UNITS/10 ML VIAL SC SCH (21:00)
== END 2021-06-19 17:00 | DRG 871 ==
LOC: CSHERS 17:21 → UNDOADMIN 17:22 → CSHTELE 17:22 → CSHICU 21:00 → UNDOADMIN 21:00 → CSHTELE 06-09 23:32 → CSHICU 06-09 23:32 → CSHIMCU 06-09 23:32 → CSHTELE 06-10 19:05 → CSHICU 06-12 16:27 → CSHTELE 06-12 16:27
PROVIDERS: ADMIT Family Medicine; ATTEND Family Medicine
PROC: 0DB68ZX Excision of Stomach, Via Natural or Artificial Opening Endoscopic, Diagnostic (ICD-10-PCS; principal; 2021-06-11)
DX: A41.9 Sepsis, unspecified organism (principal); J18.9 Pneumonia, unspecified organism; E43 Unspecified severe protein-calorie malnutrition; K86.1 Other chronic pancreatitis; N39.0 Urinary tract infection, site not specified; Z68.1 Body mass index [BMI] 19.9 or less, adult; R10.811 Right upper quadrant abdominal tenderness; Z20.822 Contact with and (suspected) exposure to COVID-19; G40.909 Epilepsy, unspecified, not intractable, without status epilepticus; K31.9 Disease of stomach and duodenum, unspecified; E10.649 Type 1 diabetes mellitus with hypoglycemia without coma; J32.0 Chronic maxillary sinusitis; J32.2 Chronic ethmoidal sinusitis; G47.00 Insomnia, unspecified; E10.42 Type 1 diabetes mellitus with diabetic polyneuropathy; G51.0 Bell's palsy; E87.6 Hypokalemia; F32.9 Major depressive disorder, single episode, unspecified; A60.00 Herpesviral infection of urogenital system, unspecified; F41.1 Generalized anxiety disorder; R32 Unspecified urinary incontinence; E10.65 Type 1 diabetes mellitus with hyperglycemia; Z79.4 Long term (current) use of insulin; Z79.891 Long term (current) use of opiate analgesic; Z79.899 Other long term (current) drug therapy; Z88.5 Allergy status to narcotic agent; Z88.0 Allergy status to penicillin; Z88.6 Allergy status to analgesic agent; Z90.89 Acquired absence of other organs; Z87.01 Personal history of pneumonia (recurrent); Z87.442 Personal history of urinary calculi
CPT/HCPCS: 36415; 36416; 70450; 71045; 74177; 76705; 78226; 80048; 80053; 80076; 80177; 80202; 81001; 81025; 82150; 82274; 82550; 82607; 83525; 83605; 83630; 83690; 83735; 84100; 84146; 84305; 84425; 84484; 84703; 85025; 87040; 87324; 87449; 87804; 88305; 88312; 93005; 94760; 96365; 96366; 96368; 96375; A9537; J0692; J0696; J1170; J1650; J1815; J1885; J1953; J1956; J2060; J2250; J2405; J2704; J3010; J3370; J3411; J3475; J3480; J3490; J7030; J7042; J7050; J7070; Q2009; U0002; U0003; U0005

== ENCOUNTER 2021-07-10 14:32 | Outpatient (CLI) | payer OTHER | END 2021-07-10 14:33 | disposition home or self-care (01) | LOC: CSHRAD 14:32 | PROVIDERS: ATTEND Family Medicine | DX: M54.50 Low back pain, unspecified (principal) | CPT/HCPCS: 72100 ==

== ENCOUNTER 2022-06-08 20:35 | Emergency (ER) | payer OTHER ==
[2022-06-08 22:17] LABS: Bilirubin Neg (Negative); Blood, Urine 250 (Negative); Clarity Bloody (Clear); Glucose, Urine (Dipstick) >=1000 mg/dL (Negative); Ketone, Urine Negative (Negative); Leukocyte Negative (Negative); Nitrite Negative (Negative); Protein, Urine (Dipstick) 30 mg/dl (Neg-Trace); Specific Gravity, Urine 1.005 (1.005-1.030); Urobilinogen Normal mg/dL (Less than 2)
[2022-06-08 22:21] LABS: Bacteria/HPF None Seen HPF (None Seen); Mucous/LPF None Seen LPF (<2+); RBC/HPF Greater than 50 HPF (0-3); Squamous Epithelial 0-3 HPF (0-3)
[2022-06-08 22:26] LABS: Pregnancy Test - Urine (BHCG) Negative (Negative); Pregu Control Background? CLEAR/WHITE (CLR/WHITE); Pregu Control Bar Appear? YES (CONTROL BAR); Specific Gravity 1.005 (1.002-1.036)
[2022-06-08 22:33] LABS: Amphetamine Not Detected (NotDetected); Barbiturates Screen Not Detected (NotDetected); Benzodiazepine Screen Not Detected (NotDetected); Cocaine Metabolite Screen Not Detected (NotDetected); Methadone Not Detected (NotDetected); Methamphetamine Not Detected (NotDetected); Opiate Screen Not Detected (NotDetected); Oxycodone Screen Not Detected (NotDetected); Phencyclidine (PCP) Not Detected (NotDetected); THC/Cannabinoid Screen Not Detected (NotDetected); Tricyclic Screen Not Detected (NotDetected)
[2022-06-08] MEDS ORDERED: Ondansetron PF 4 MG/2 ML Vial ONE (22:40)
[2022-06-08] MEDS ORDERED: Ketorolac Tromethamine 30 MG/ML VIAL ONE (22:40)
[2022-06-08 22:57] LABS: ALT (SGPT) 26 U/L (8-55); AST (SGOT) 22 U/L (5-34); Albumin 4.1 g/dL (3.5-5.0); Alkaline Phosphatase 158 U/L (40-110); Anion Gap 13 mmol/L (10-20); BUN (Urea Nitrogen) 10 mg/dL (7.0-18.7); Bilirubin, Total 0.4 mg/dL (0.2-1.2); Calc. Creatinine Clearance 0 mL/min (70-130); Calcium 9.2 mg/dL (7.8-10.44); Carbon Dioxide 28 mmol/L (22-29); Chloride 99 mmol/L (98-107); Estimated GFR 92; Globulin 2.7 g/dL (2.4-3.5); Lipase 7 U/L (8-78); Potassium 3.5 mmol/L (3.5-5.1); Protein, Total 6.8 g/dL (6.0-8.3); Sodium 136 mmol/L (136-145)
[2022-06-08 22:58] LABS: Acetaminophen Less than 10.0 mcg/mL (10.0-30.0); Alcohol Less than 10 mg/dL (Less than 10); Salicylate Less than 8.0 mg/dL (15.0-30.0)
[2022-06-08 22:59] LABS: #Basophils 0.1 10x3/uL (0.0-0.2); #Eosinphils 0.3 10x3/uL (0.0-0.5); #Monocytes 0.5 10x3/uL (0.0-1.1); #Neutrophils 2.8 10x3/uL (1.5-8.4); %Basophils 0.8 % (0.0-2.0); %Eosinophils 4.4 % (0.0-6.0); %Lymphocytes 39.3 % (18.0-47.0); %Monocytes 7.8 % (0.0-10.0); %Neutrophils 47.5 % (40.0-75.0); Glucose 466 mg/dL (70-105); Hemoglobin 10.8 g/dL (12.0-15.5); Mean Corpuscular HGB CONC 34.3 g/dL (32.0-36.0); Mean Corpuscular Hemoglobin 29.5 pg (27.0-33.0); Mean Corpuscular Volume 86.1 fl (81.6-98.3); Mean Platelet Volume 10.8 fl (7.4-10.4); Platelet Count 269 10x3/uL (150-450); RBC Distribution Width 11.9 % (11.5-14.5); Red Blood Cell (RBC) Count 3.66 10x6/uL (3.90-5.03); White Blood Cell (WBC) Count 5.9 10x3/uL (3.5-10.5)
[2022-06-09] MEDS ORDERED: HYDROcodone/Acetaminophen 5/325 mg Tablet ONE (00:01)
== END 2022-06-09 00:35 | disposition home or self-care (01) ==
LOC: CSHERS 20:35
DX: K86.1 Other chronic pancreatitis (principal); N26.1 Atrophy of kidney (terminal); E10.9 Type 1 diabetes mellitus without complications; E78.00 Pure hypercholesterolemia, unspecified; Z79.899 Other long term (current) drug therapy
CPT/HCPCS: 36416; 74176; 80053; 80306; 80307; 81003; 81015; 81025; 82010; 83690; 85025; 87077; 87086; 87186; 96374; 96375; J1885; J2405

== ENCOUNTER 2022-11-08 10:41 | Emergency (ER) | payer OTHER ==
[~2022-11-08 10:41] MED LIST: Iopamidol 300 61% 100 ML VIAL FS ONE
[2022-11-08 11:23] LABS: #Basophils 0.1 10x3/uL (0.0-0.2); #Eosinphils 0.3 10x3/uL (0.0-0.5); #Monocytes 0.4 10x3/uL (0.0-1.1); #Neutrophils 4.1 10x3/uL (1.5-8.4); %Basophils 1.2 % (0.0-2.0); %Eosinophils 3.7 % (0.0-6.0); %Lymphocytes 27.1 % (18.0-47.0); %Monocytes 6.3 % (0.0-10.0); %Neutrophils 61.6 % (40.0-75.0); Hemoglobin 11.5 g/dL (12.0-15.5); Mean Corpuscular HGB CONC 33.7 g/dL (32.0-36.0); Mean Corpuscular Hemoglobin 28.8 pg (27.0-33.0); Mean Corpuscular Volume 85.5 fl (81.6-98.3); Mean Platelet Volume 10.6 fl (7.4-10.4); Platelet Count 306 10x3/uL (150-450); RBC Distribution Width 12.8 % (11.5-14.5); Red Blood Cell (RBC) Count 3.99 10x6/uL (3.90-5.03); White Blood Cell (WBC) Count 6.7 10x3/uL (3.5-10.5)
[2022-11-08 11:25] LABS: BHCG - Serum Negative (NEGATIVE); Pregs Control Background? CLEAR/WHITE (CLR/WHITE); Pregs Control Bar Appear? YES (CONTROL BAR)
[2022-11-08 11:33] LABS: ALT (SGPT) 25 U/L (8-55); AST (SGOT) 30 U/L (5-34); Albumin 3.9 g/dL (3.5-5.0); Alkaline Phosphatase 198 U/L (40-110); Anion Gap 14 mmol/L (10-20); BUN (Urea Nitrogen) 8 mg/dL (7.0-18.7); Bilirubin, Total 0.2 mg/dL (0.2-1.2); Calc. Creatinine Clearance 0 mL/min (70-130); Calcium 8.8 mg/dL (7.8-10.44); Carbon Dioxide 22 mmol/L (22-29); Chloride 103 mmol/L (98-107); Estimated GFR 95; Globulin 3.3 g/dL (2.4-3.5); Lipase 13 U/L (8-78); Potassium 3.9 mmol/L (3.5-5.1); Protein, Total 7.2 g/dL (6.0-8.3); Sodium 135 mmol/L (136-145)
[2022-11-08] MEDS ORDERED: Ondansetron PF 4 MG/2 ML Vial ONE (11:38)
[2022-11-08 11:39] LABS: Glucose 550 mg/dL (70-105)
[2022-11-08 12:54] LABS: Bilirubin Neg (Negative); Blood, Urine 10 (Negative); Clarity Clear (Clear); Glucose, Urine (Dipstick) >=1000 mg/dL (Negative); Ketone, Urine 15 mg/dL (Negative); Leukocyte Negative (Negative); Nitrite Negative (Negative); Protein, Urine (Dipstick) Negative (Neg-Trace); Urobilinogen Normal mg/dL (Less than 2); pH, Urine 6.5 (5.0-9.0)
[2022-11-08 13:02] LABS: Bacteria/HPF None Seen HPF (None Seen); RBC/HPF None Seen HPF (0-3); Squamous Epithelial 0-3 HPF (0-3); WBC/HPF None Seen HPF (0-3)
[2022-11-08] MEDS ORDERED: Ketorolac Tromethamine 30 MG/ML VIAL ONE (13:41)
== END 2022-11-08 14:05 | disposition home or self-care (01) ==
LOC: CSHERS 10:41
DX: R10.9 Unspecified abdominal pain (principal); N93.9 Abnormal uterine and vaginal bleeding, unspecified; E10.9 Type 1 diabetes mellitus without complications; E78.00 Pure hypercholesterolemia, unspecified
CPT/HCPCS: 36415; 36416; 74177; 80053; 81003; 81015; 82010; 83690; 84703; 85025; 96374; 96375; J1885; J2405; Q9967